=== PATIENT | male | born 1970 | race Caucasian/White ===

== ENCOUNTER 2016-09-20 18:22 | Emergency (ER) | payer SELFPAY ==
[2016-09-20 19:07] LABS: BASOPHILS 0.1 % (0.0-2.0); EOSINOPHILS 0.1 % (0-7); HEMATOCRIT 40.7 % (42.0-54.0); HEMOGLOBIN 13.9 g/dL (13.5-17.5); IMMATURE GRANULOCYTES 0.5 % (0-5); LYMPHOCYTES 5.2 % (15-50); MCH 31.6 pg (26.0-34.0); MCHC 34.2 g/dL (31.0-37.0); MCV 92.5 fL (80.0-100.0); MEAN PLATELET VOLUME 10.8 fL (7.4-10.4); MONOCYTES 14.4 % (2-11); NEUTROPHILS 79.7 % (40-80); PLATELET COUNT 178 10x3/uL (130-400); RDW 16.4 % (11.5-14.5); WBC 10.7 10x3/uL (4.8-10.8)
[2016-09-20 19:26] LABS: ALKALINE PHOSPHATASE 94 U/L (46-116); ALT (SGPT) 41 U/L (10-68); AMYLASE - SERUM 105 U/L (25-115); BILIRUBIN - TOTAL 0.84 mg/dL (0.2-1.3); CALC OSMOLALITY 267 mosm/kg (275-300); CALCIUM 9.4 mg/dL (8.5-10.1); CARBON DIOXIDE 23.9 mmol/L (21.0-32.0); CHLORIDE - SERUM 92 mmol/L (98-107); GLUCOSE 163 mg/dL (74-106); LIPASE 87 U/L (73-393); MAGNESIUM - SERUM 1.6 mg/dL (1.8-2.4); POTASSIUM - SERUM 3.2 mmol/L (3.5-5.1); SODIUM 133 mmol/L (136-145); UREA NITROGEN 8 mg/dL (7-18); eGFR NON AFRICAN AMERICAN 86 mL/min (90-120)
[2016-10-21 11:26] VITALS: BMI 20.5
== END 2016-09-20 20:37 | disposition home or self-care (01) ==
LOC: EDBD 18:22 → D.ER 18:22
PROVIDERS: Nurse Practitioner Family
DX: R11.2 Nausea with vomiting, unspecified (principal); A08.4 Viral intestinal infection, unspecified; F17.200 Nicotine dependence, unspecified, uncomplicated

== ENCOUNTER 2016-10-20 10:11 | Inpatient (IN) | payer MEDICAID ==
[~2016-10-20] VITALS: Ht 172.7 cm; Wt 61.2 kg
[2016-10-20 11:29] LABS: BASOPHILS 0.2 % (0.0-2.0); EOSINOPHILS 0.3 % (0-7); HEMATOCRIT 44.6 % (42.0-54.0); HEMOGLOBIN 14.9 g/dL (13.5-17.5); IMMATURE GRANULOCYTES 0.3 % (0-5); LYMPHOCYTES 8.3 % (15-50); MCH 32.3 pg (26.0-34.0); MCHC 33.4 g/dL (31.0-37.0); MCV 96.7 fL (80.0-100.0); MONOCYTES 10.9 % (2-11); PLATELET COUNT 184 10x3/uL (130-400); RBC 4.61 10x6/uL (4.20-6.10)
[2016-10-20 12:12] LABS: ALBUMIN 4.2 g/dL (3.4-5.0); ANION GAP 28.9 mmol/L (8-16); BILIRUBIN - TOTAL 1.05 mg/dL (0.2-1.3); CARBON DIOXIDE 11.3 mmol/L (21.0-32.0); CREATININE - SERUM 1.2 mg/dL (0.6-1.3); MAGNESIUM - SERUM 1.9 mg/dL (1.8-2.4); POTASSIUM - SERUM 3.2 mmol/L (3.5-5.1); PROTEIN - SERUM 7.9 g/dL (6.4-8.2)
[2016-10-20 14:14] LABS: UDS - AMPHET NEGATIVE QUAL (NEGATIVE); UDS - BARB NEGATIVE QUAL (NEGATIVE); UDS - BENZO NEGATIVE QUAL (NEGATIVE); UDS - COCAINE NEGATIVE QUAL (NEGATIVE); UDS - METH NEGATIVE QUAL (NEGATIVE); UDS - OPIATE NEGATIVE QUAL (NEGATIVE); UDS - PCP NEGATIVE QUAL (NEGATIVE); UDS - THC POSITIVE QUAL (NEGATIVE)
[2016-10-20 14:23] LABS: APPEARANCE HAZY (CLEAR); BILIRUBIN NEGATIVE (NEGATIVE); COLOR YELLOW (YELLOW); GLUCOSE 1000 mg/dL (NEGATIVE); KETONE LARGE mg/dL (NEGATIVE); LEUKOCYTE ESTERASE NEGATIVE (NEGATIVE); NITRITE NEGATIVE (NEGATIVE); PROTEIN TRACE mg/dL (NEGATIVE); SPECIFIC GRAVITY 1.025 (1.005-1.020); UROBILINOGEN NORMAL (NORMAL)
[2016-10-20 14:24] LABS: EPITHELIAL CELLS NSEEN /hpf (0-5); RED CELLS - URINE NONE SEEN /hpf (0-5); WHITE CELLS - URINE NSEEN /hpf (0-5)
[2016-10-20 14:29] LABS: AMORPHOUS SEDIMENT <1+ /lpf (NONE SEEN); SPERMATOZOA 0-5 /hpf (NONE SEEN)
[2016-10-20] MEDS ORDERED: AMANTADINE100 M1 PO (17:15)
[2016-10-20] MEDS ORDERED: LOPRESSOR25 MG PO (17:16)
[2016-10-20] MEDS ORDERED: ZYPREXA5 MG PO (17:16)
[2016-10-20] MEDS ORDERED: KEPPRA750 MG PO (17:16)
[2016-10-20 17:19] VITALS: BP 139/76; BMI 20.5
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
[2016-10-20 19:00] VITALS: BP 136/73
--- NOTE | 2016-10-20 19:15 | NUR ---
REPORT RECVD. CARE ASSUMED. INITIAL ASSMNT COMPLETED. SEE FLOWSHEET FOR ALL FINDINGS. RESTLESS BUT LETHARGIC. AROUSES TO VOICE. UNCOOPERATIVE AND IRRITABLE. CONFUSED. PULLS AT LINES. RESTRAINTS IN USE FOR SAFETY. RESP EVEN AND UNLABORED. LUNGS CTA. SR ON THE MONITOR. REMOVES LEADS. EVEN WHILE RESTRAINED. SPO2 95% ON RA. PULSES PALP. SCDS IN USE. AFEBRILE. ABD SOFT, BSA X4. VOIDS TO URINAL WITH ASSIST. NO DISTRESS. HOB UP. C/L IN REACH. CONT CURRENT POC.
[2016-10-20 20:00] VITALS: BP 127/81
[2016-10-20 21:00] VITALS: BP 113/77; BP 136/73
--- NOTE | 2016-10-20 21:00 | NUR ---
[facility] MEDS GIVEN NO DIFF. ATTEMPTED TO RELEASE RESTRAINTS. REMOVED SCDS AND STARTED TO REACH FOR IV WITHIN A FEW MINUTES. REPLACED RESTRAINTS FOR LINES. VSS. HOB UP. C/L IN REACH. CONT CURRENT POC.
[2016-10-20 22:00] VITALS: BP 134/78
[2016-10-20 23:00] VITALS: BP 130/82
--- NOTE | 2016-10-20 23:15 | NUR ---
REASSESSMENT COMPLETED. SEE FLOWSHEET FOR ALL FINDINGS. RESTING WITH NO DISTRESS. UNCOOPERATIVE AND IRRITABLE. CONFUSED. PULLS AT LINES. RESTRAINTS IN USE FOR SAFETY. RESP EVEN AND UNLABORED. LUNGS CTA. SR ON THE MONITOR. REMOVES LEADS. EVEN WHILE RESTRAINED. SPO2 95% ON RA. PULSES PALP. SCDS IN USE. AFEBRILE. ABD SOFT, BSA X4. VOIDS TO URINAL WITH ASSIST. NO DISTRESS. HOB UP. C/L IN REACH CONT CURRENT POC.
[2016-10-21] VITALS (14 sets, daily range): BP systolic 107–165; BP diastolic 50–101; Ht 172.7 cm; Wt 61.2 kg
--- NOTE | 2016-10-21 01:13 | NUR ---
MORE ALERT. REMAINS DISORIENTED TO TIME AND SITUATION. SINUS TACH AT 102. SPO2 95% ON RA. NO DISTRESS. RESTRAINTS FOR LINES. ASSISTED TO REPOSITION FOR COMFORT. HOB UP. C/L IN REACH. BED ALARM ON. CONT CURRENT POC.
--- NOTE | 2016-10-21 03:15 | NUR ---
REASSESSMENT COMPLETED. SEE FLOWSHEET FOR ALL FINDINGS. RESTING WITH NO DISTRESS. MORE ALERT. COOPERATIVE AND PLEASANT. CONFUSED. PULLS AT LINES. RESTRAINTS IN USE FOR SAFETY. RESP EVEN AND UNLABORED. LUNGS CTA. SR ON THE MONITOR. PULSES PALP. SPO2 95% ON RA. PULSES PALP. SCDS IN USE. AFEBRILE. ABD SOFT, BSA X4. VOIDS TO URINAL WITH ASSIST. NO DISTRESS. HOB UP. C/L IN REACH CONT CURRENT POC.
[2016-10-21 04:25] LABS: BASOPHILS 0.1 % (0.0-2.0); EOSINOPHILS 1.2 % (0-7); HEMATOCRIT 38.8 % (42.0-54.0); HEMOGLOBIN 12.8 g/dL (13.5-17.5); IMMATURE GRANULOCYTES 0.1 % (0-5); LYMPHOCYTES 18.2 % (15-50); MCH 31.3 pg (26.0-34.0); MCV 94.9 fL (80.0-100.0); MEAN PLATELET VOLUME 11.2 fL (7.4-10.4); MONOCYTES 12.6 % (2-11); NEUTROPHILS 67.8 % (40-80); PLATELET COUNT 145 10x3/uL (130-400); RBC 4.09 10x6/uL (4.20-6.10); WBC 7.3 10x3/uL (4.8-10.8)
[2016-10-21 04:50] LABS: ALBUMIN 3.3 g/dL (3.4-5.0); ALKALINE PHOSPHATASE 102 U/L (46-116); ALT (SGPT) 19 U/L (10-68); BILIRUBIN - TOTAL 0.66 mg/dL (0.2-1.3); CALCIUM 8.2 mg/dL (8.5-10.1); CHLORIDE - SERUM 102 mmol/L (98-107); POTASSIUM - SERUM 3.1 mmol/L (3.5-5.1); PROTEIN - SERUM 6.2 g/dL (6.4-8.2); SODIUM 137 mmol/L (136-145)
[2016-10-21 04:55] LABS: CALC OSMOLALITY 270 mosm/kg (275-300); CARBON DIOXIDE 25.6 mmol/L (21.0-32.0); CREATININE - SERUM 0.8 mg/dL (0.6-1.3); GLUCOSE 104 mg/dL (74-106); UREA NITROGEN 3 mg/dL (7-18); eGFR NON AFRICAN AMERICAN > 90 mL/min (90-120)
--- NOTE | 2016-10-21 05:19 | NUR ---
RESTING WITH NO DISTRESS. VSS. MORE ALERT AND COOPERATIVE. C/L IN REACH. CONT POC.
--- NOTE | 2016-10-21 12:31 | NUR ---
PT ATTEMPTING TO REMOVE IV. STATES "IM TIRED OF THIS SHIT!" INFORMED THAT PT NEEDS IV FLUIDS AND NOT TO REMOVE IV. PT STATES "I'M LEAVING" DR. MILLER PAGED.
--- NOTE | 2016-10-21 13:31 | NUR ---
PT REMOVING ALL MEDICAL EQUIPMENT. CHAR FILTER TANK TENDER HEAD OFF. OUT OF BED. PULLED IV OUT. REFUSES TO STAY. REFUSES TO SIGN AMA PAPERWORK. DR. MILLER AND TOOL SHAPER SET UP OPERATOR NOTIFIED. SECURITY PAGED. CUSSING AND YELLING. "FUCK THIS I'M NOT PAYING FOR ANYTHING" INFORMED THAT INSURANCE DOES NOT HAVE TO PAY, MEDICAL DR DOES NOT HAVE TO FOLLOW UP WITH CARE IF PT REFUSES MEDICAL ADVICE. PT ENCOURAGED TO STAY. PT INFORMED LEAVING AMA COULD BE DETRIMENTAL TO HIS HEALTH AND RISKS INCLUDE ACCIDENT AND . PT STATES "I CAN DOING A SHIT TON OF OTHER THINGS" PT WALKS OUT OF UNIT MUTTERING OBSCENTITIES.
== END 2016-10-21 13:35 | disposition left against medical advice (07) | DRG 101 ==
LOC: D.ER 10:11 → EDBD 10:11 → D.CVICU 16:00
PROVIDERS: Emergency Medicine; ADMIT Family Medicine
DX: G40.409 Other generalized epilepsy and epileptic syndromes, not intractable, without status epilepticus (principal); I10 Essential (primary) hypertension; F12.90 Cannabis use, unspecified, uncomplicated; E87.6 Hypokalemia; Z91.19 Patient's noncompliance with other medical treatment and regimen; Z87.820 Personal history of traumatic brain injury; Z72.0 Tobacco use

== ENCOUNTER 2017-08-06 13:24 | Emergency (ER) | payer SELFPAY ==
[2016-10-21 11:26] VITALS: BMI 20.5
[~2017-08-06 13:24] MED LIST: AMANTADINE100 M1 PO; KEPPRA750 MG PO; LOPRESSOR25 MG PO; ZYPREXA5 MG PO
== END 2017-08-06 15:29 | disposition home or self-care (01) ==
LOC: D.ER 13:24
DX: R11.10 Vomiting, unspecified (principal); K30 Functional dyspepsia

== ENCOUNTER 2017-08-06 19:56 | Observation (INO) | payer SELFPAY ==
[~2017-08-06] VITALS: Ht 172.7 cm; Wt 56.8 kg
--- NOTE | ~2017-08-06 | HP ---
PATIENT: KEISHA ASHER MEDICAL RECORD: [id number] ACCOUNT: [id number] LOCATION:[facility] : [birth year] ADMISSION DATE: 08/06/17 HISTORY AND PHYSICAL EXAMINATION HISTORY OF PRESENT ILLNESS: Mr. Asher is a 56-year-old white male who was brought in for dizziness, near syncope. He was hospitalized here in October of 2016 with similar symptoms, was felt to have a seizure disorder. He has been very noncompliant. He has a history of heavy alcohol abuse and drinks about a fifth of whiskey every 3 days. He has a history of IV drug use and marijuana use, but states he has not used those in over 5 years. He [place] his [place] [facility]. He works occasionally as a plumber's helper. He is feeling okay at this time. States the dizziness lasted for about 45 minutes. His labs all look okay. CT is nondiagnostic. He is placed in observation for further evaluation. PAST MEDICAL HISTORY: He has a history of, per old records, a traumatic head injury. He denies any medical problems. PAST SURGICAL HISTORY: His only surgery has been left hand surgery due to trauma. ALLERGIES: He is allergic to PENICILLIN. MEDICATIONS: He currently takes no medications. SOCIAL HISTORY: He works part-time as a plumber's helper, lives with his brother and [id number]. He does smoke cigarettes. He drinks about a fifth every third day, history of IV drug use and polysubstance abuse. REVIEW OF SYSTEMS: He denies any fever. He denies any chest pain. He denies any palpitations. He does complain of dizziness and nausea. He denies any loss of continence or fever. PHYSICAL EXAMINATION: GENERAL: He is pleasant, alert at this time. HEENT: Sclerae nonicteric. NECK: Soft and supple. HEART: Regular. LUNGS: Clear. ABDOMEN: Soft. NEUROLOGIC: Without any gross focal deficits. IMPRESSION: 1. Dizziness, near syncope. 2. History of seizures at high risk for seizure treatment. 3. Alcohol abuse. PLAN: Observation, monitor for telemetry. VTE prophylaxis. He never lost consciousness. I am uncertain if this actually represents a seizure or possibly any arrhythmia or something related to his alcohol abuse. We will monitor for further symptoms. TRANSINT:[id number] Voice Confirmation ID: [id number] DOCUMENT ID: [id number] HISTORY AND PHYSICAL [id number] KEISHA ASHER MATTHEW DO at 1144 CC: [id number] DICTATION DATE: 08/07/17918 TECHNICAL TRANSLATOR: 08/07/17 0936 [facility] [address] [place] [address]
[2017-08-06 20:46] LABS: BASOPHILS 0.1 % (0-2); EOSINOPHILS 0 % (0-7); HEMATOCRIT 39.2 % (42.0-54.0); HEMOGLOBIN 13.4 g/dL (13.5-17.5); IMMATURE GRANULOCYTES 0.2 % (0-5); LYMPHOCYTES 7.3 % (15-50); MCH 32.3 pg (26.0-34.0); MCHC 34.2 g/dL (31.0-37.0); MCV 94.5 fL (80.0-100.0); MEAN PLATELET VOLUME 11.5 fL (7.4-10.4); MONOCYTES 13.6 % (2-11); NEUTROPHILS 78.8 % (40-80); PLATELET COUNT 164 10x3/uL (130-400); RBC 4.15 10x6/uL (4.20-6.10); RDW 16.6 % (11.5-14.5); WBC 11.7 10x3/uL (4.8-10.8)
[2017-08-06 21:01] LABS: ALBUMIN 4.2 g/dL (3.4-5.0); ANION GAP 24.5 mmol/L (8-16); BILIRUBIN - TOTAL 1.8 mg/dL (0.2-1.3); CALCIUM 9.6 mg/dL (8.5-10.1); CARBON DIOXIDE 19.9 mmol/L (21.0-32.0); CREATININE - SERUM 1.1 mg/dL (0.6-1.3); POTASSIUM - SERUM 3.4 mmol/L (3.5-5.1); PROTEIN - SERUM 7.3 g/dL (6.4-8.2)
[2017-08-06 21:04] LABS: MAGNESIUM - SERUM 1.9 mg/dL (1.8-2.4)
[2017-08-06 23:16] LABS: CKMB 1.6 U/L (0.0-3.6); CREATINE KINASE 135 UL (21-232)
[2017-08-06 23:18] LABS: TROPONIN-I < 0.017 ng/mL (0.000-0.060)
[2017-08-07 02:44] LABS: CREATINE KINASE 125 UL (21-232); TROPONIN-I < 0.017 ng/mL (0.000-0.060)
[2017-08-07 09:13] LABS: CKMB 0.8 U/L (0.0-3.6); CREATINE KINASE 131 UL (21-232)
[2017-08-07 09:14] LABS: TROPONIN-I < 0.017 ng/mL (0.000-0.060)
[2017-08-07 15:14] LABS: CKMB 0.7 U/L (0.0-3.6); CREATINE KINASE 125 UL (21-232); TROPONIN-I < 0.017 ng/mL (0.000-0.060)
[2017-08-07 17:14] VITALS: BP 130/87; Ht 172.7 cm; Wt 56.8 kg
[2017-08-07 20:00] VITALS: BP 128/74
[2017-08-08] VITALS: BP 124/78
[2017-08-08 04:00] VITALS: BP 131/84
[2017-08-08 06:16] LABS: BASOPHILS 0.2 % (0-2); EOSINOPHILS 0.8 % (0-7); HEMATOCRIT 35.2 % (42.0-54.0); HEMOGLOBIN 11.8 g/dL (13.5-17.5); IMMATURE GRANULOCYTES 0.2 % (0-5); MCH 32.2 pg (26.0-34.0); MCHC 33.5 g/dL (31.0-37.0); MCV 96.2 fL (80.0-100.0); MEAN PLATELET VOLUME 10.6 fL (7.4-10.4); MONOCYTES 14.8 % (2-11); RBC 3.66 10x6/uL (4.20-6.10); RDW 16.5 % (11.5-14.5)
[2017-08-08 06:28] LABS: CALCIUM 8.2 mg/dL (8.5-10.1); CHLORIDE - SERUM 102 mmol/L (98-107); SODIUM 139 mmol/L (136-145)
[2017-08-08 06:29] LABS: CALC OSMOLALITY 274 mosm/kg (275-300); CREATININE - SERUM 0.8 mg/dL (0.6-1.3); GLUCOSE 96 mg/dL (74-106); UREA NITROGEN 3 mg/dL (7-18); eGFR NON AFRICAN AMERICAN > 90 mL/min (90-120)
[2017-08-08 06:30] LABS: CARBON DIOXIDE 32.3 mmol/L (21.0-32.0); PLATELET COUNT 101 10x3/uL (130-400); WBC 4.9 10x3/uL (4.8-10.8)
[2017-08-08 08:28] VITALS: BP 134/73
[2017-08-08 11:38] VITALS: BP 125/67
== END 2017-08-08 15:09 | disposition home or self-care (01) ==
LOC: D.ER 19:56 → D.M2 08-07 15:42 → OBSVTIME 08-07 15:42 → D.M2 08-07 15:42
PROVIDERS: Family Medicine
DX: R55 Syncope and collapse (principal); F10.10 Alcohol abuse, uncomplicated; R56.9 Unspecified convulsions; Z87.820 Personal history of traumatic brain injury; Z72.0 Tobacco use